=== PATIENT | female | born 1930 | race Caucasian/White ===

== ENCOUNTER → 2016-12-13 | Day surgery (SDC) | payer MEDICARE, BC ==
[2016-12-07 15:40] VITALS: BMI 31.1
[~2016-12-13] MED LIST: CLINDAMYCIN 900 MG in DEXTROSE 5% IN WATER 50 ML IVPB ONE; DEXAMETHASONE SOD PHOSPHATE 10 MG/ML 1 ML VIAL IV ONE; HYDROcodone/APAP 5-325MG 1 EACH TAB PO ONE; HYDROmorphone 0.5 MG/0.5 ML SYRINGE IVP PRN; LACTATED RINGERS 1,000 ML IV SCH; LIDOCAINE 1% 20 ML VIAL (10MG/ML) FOR IV START INTRADERMA PRN; LIDOCAINE 1% INJ 10MG/ML (20 ML MDV) ONE; MIDAZOLAM 2 MG/2 ML VIAL IV PRN; MIDAZOLAM 2 MG/2 ML VIAL ONE; ONDANSETRON 4 MG/2 ML VIAL IVP ONE; PROPOFOL 10 MG/ML 20 ML VIAL IV ONE; SCOPOLAMINE 1.5MG/72HR PATCH TRANSDERM ONE; ePHEDrine SULFATE/0.9% NACL/PF 50 MG/5 ML SYRINGE IV ONE; fentaNYL (PF) 50 MCG/ML 2 ML AMP ONE
--- NOTE | 2016-12-13 14:57 | P.OP ---
Date of Procedure: 12/13/16 Preoperative Diagnosis: Mixed Urinary Incontinence, Intrinsic Sphincter Deficiency Postoperative Diagnosis: Same Procedure(s) Performed: Cystoscopy with Coaptite Injections Anesthesia: BANDAR Surgeon: Sylvester Nicolas Estimated Blood Loss (ml): 0 IV fluids (ml): 500 Pathology: none sent Condition: stable Disposition: PACU Indications for Procedure: She is an 86-year-old woman with significant mixed urinary incontinence, which required the use of 6 pads daily. On examination, the bladder was well supported. There was no urethral hypermobility. Urodynamic testing was consistent with intrinsic sphincter deficiency, and she thus underwent Coaptite injections. She developed postoperative urinary retention, but this resolved and her incontinence was 80% improved. The incontinence has now worsened despite the fact she continues to take Detrol LA, and she will thus undergo repeat Coaptite injections. Operative Findings: Very good coaptation achieved. Description of Procedure: The patient was taken to the operating room and placed in the dorsolithotomy position, with her legs supported in Alcon stirrups. The external genitalia was prepped and draped sterilely. The 30 lens was used to introduce the 19- Albanian start cystoscopic sheath through the urethra and into the bladder under direct vision. The urethra was unremarkable. The bladder was examined in its entirety. The right ureteral orifices was of normal anatomic location and configuration, and clear urine effluxed from it. The left ureteral orifice was not seen with certainty. No tumors or foreign bodies were seen. The long transurethral needle was passed through a 20-Albanian sheath specially designed for injection. The cystoscope was advanced to the level of the mid urethra. The needle was then advanced such that a perforated the mucosa, and it was then advanced within the submucosal plane to the level of the proximal urethra. Coaptite was injected in 4 sites. A total of 4 syringes were injected. Very good coaptation of the proximal urethra was achieved. The bladder was drained, and the procedure was terminated. The patient tolerated the procedure well was taken to the recovery room in stable condition.
[2016-12-13 15:03] VITALS: TEMP 97
[2016-12-13 16:19] VITALS: RESP 18
[2016-12-13 17:20] VITALS: BP 148/80; PULSE 82
== END | disposition home or self-care (01) ==
LOC: OR 12:07
PROVIDERS: ATTEND Urology
DX: N39.46 Mixed incontinence (principal); N36.42 Intrinsic sphincter deficiency (ISD); D50.9 Iron deficiency anemia, unspecified; I20.9 Angina pectoris, unspecified; M10.9 Gout, unspecified; I83.90 Asymptomatic varicose veins of unspecified lower extremity; E55.9 Vitamin D deficiency, unspecified; E79.0 Hyperuricemia without signs of inflammatory arthritis and tophaceous disease; E66.9 Obesity, unspecified; Z68.31 Body mass index [BMI] 31.0-31.9, adult; I12.9 Hypertensive chronic kidney disease with stage 1 through stage 4 chronic kidney disease, or unspecified chronic kidney disease; K21.9 Gastro-esophageal reflux disease without esophagitis; N18.4 Chronic kidney disease, stage 4 (severe); H40.9 Unspecified glaucoma; M19.90 Unspecified osteoarthritis, unspecified site; J44.9 Chronic obstructive pulmonary disease, unspecified; Z79.82 Long term (current) use of aspirin; Z79.899 Other long term (current) drug therapy; Z88.1 Allergy status to other antibiotic agents; Z88.0 Allergy status to penicillin; Z88.2 Allergy status to sulfonamides; Z88.8 Allergy status to other drugs, medicaments and biological substances
CPT/HCPCS: 52327; L8606; J2250; J1100; J2405; J2001; J3010; J2704

== ENCOUNTER → 2017-05-14 | Outpatient (CLI) | payer MEDICARE, BC ==
[2017-05-14 11:27] LABS: Basophils # (A) 0.1 k/uL (0-0.2); Basophils % (A) 1 %; Eosinophils # (A) 0.5 k/uL (0-0.7); Eosinophils % (A) 9 %; HCT 31.1 % (34.0-46.0); HGB 10.6 gm/dL (11.4-16.0); Lymphocytes # (A) 1.5 k/uL (1.0-4.8); Lymphocytes % (A) 26 %; MCH 31.5 pg (25.0-35.0); MCHC 34.1 g/dL (31.0-37.0); MCV 92.5 fL (80.0-100.0); Mean Platelet Volume 6.9; Monocytes # (A) 0.5 k/uL (0-1.0); Monocytes % (A) 8 %; Neutrophils % (A) 52 %; Platelet Count 264 k/uL (150-450); RBC 3.36 m/uL (3.80-5.40); RDW 13.5 % (11.5-15.5); WBC 5.8 k/uL (3.8-10.6)
[2017-05-14 11:44] LABS: Appearance,Urine Clear (Clear); Bilirubin,Urine Negative (Negative); Blood,Urine Negative (Negative); Color,Urine Colorless; Glucose,Urine (UA) Negative (Negative); Ketones,Urine Negative (Negative); Leukocyte Esterase,Urine Negative (Negative); Nitrite,Urine Negative (Negative); PH, Urine 5.5 (5.0-8.0); Protein,Urine Trace (Negative); Specific Gravity,Urine 1.005 (1.001-1.035); Urobilinogen,Urine <2.0 mg/dL (<2.0)
[2017-05-14 11:53] LABS: Calcium 9.5 mg/dL (8.4-10.2); Magnesium 2.2 mg/dL (1.6-2.3); Phosphorus 5.2 mg/dL (2.5-4.5); Potassium 4.3 mmol/L (3.5-5.1); Uric Acid 6.1 mg/dL (3.7-7.4)
[2017-05-14 17:24] LABS: Parathyroid Hormone Intact 114.7 pg/mL (14.0-72.0)
[2017-05-14 17:33] LABS: Iron Saturation 25.22 (12.00-45.00)
[2017-05-14 17:41] LABS: Vitamin D 25 Hydroxy 55.6 ng/mL (30.0-100.0)
== END | disposition home or self-care (01) ==
LOC: LABWHC1 10:45
PROVIDERS: ATTEND Internal Medicine Nephrology
DX: N39.0 Urinary tract infection, site not specified (principal); D50.9 Iron deficiency anemia, unspecified; E55.9 Vitamin D deficiency, unspecified; N25.81 Secondary hyperparathyroidism of renal origin; M10.9 Gout, unspecified; D63.8 Anemia in other chronic diseases classified elsewhere; N18.4 Chronic kidney disease, stage 4 (severe)
CPT/HCPCS: 36415; 80048; 81003; 82306; 82728; 83540; 83550; 83735; 83970; 84100; 84550; 85025

== ENCOUNTER → 2017-05-21 | Outpatient (CLI) | payer MEDICARE, BC ==
[2017-05-18 13:03] VITALS: BMI 31.4
[2017-05-21 12:23] VITALS: BP 159/91; PULSE 75; RESP 18
--- NOTE | 2017-05-21 12:49 | P.CONS ---
History of Present Illness - Reason for Consult Consult date: 05/21/17 - History of Present Illness This is 86 years FEMALE with a chronic history of severe neck pain and headache , started more than 2 years ago, she denies any initiating event, she denies any motor or sensory deficit, she reported the headache is constant and increases with any neck movement, she tried pain medication [place] 5/325 without any benefit, she was evaluated by Dr. Mcclelland, neurology services and she recommended bilateral occipital nerve block, patient was referred to [facility] for occipital nerve block, patient denies any fever or night sweats she denies any change in the bowel movement or urination Past Medical History Past Medical History: CVA/TIA, Dementia, Eye Disorder, GERD/Reflux, Hypertension , Memory Impairment, Pneumonia, Respiratory Disorder Additional Past Medical History / Comment(s): Heart skips a beat sometimes. BILAT GLAUCOMA, USES WHEELCHAIR History of Any Multi-Drug Resistant Organisms: None Reported Past Surgical History: Back Surgery, Cholecystectomy, Hysterectomy, Joint Replacement, Orthopedic Surgery Additional Past Surgical History / Comment(s): BILAT cataracts, RT TKA, RT KNEE SX Past Anesthesia/Blood Transfusion Reactions: No Reported Reaction Additional Past Anesthesia/Blood Transfusion Reaction / Comm: "slow to wake up after anesthesia" Past Psychological History: No Psychological Hx Reported Smoking Status: Never smoker Past Alcohol Use History: None Reported Past Drug Use History: None Reported - Past Family History Brother(s) Family Medical History: Cancer Mother Family Medical History: No Reported History Medications and Allergies Home Medications Medication Instructions Recorded Confirmed Type Aspirin 81 mg PO DAILY 07/31/13 05/18/17 History Hydrochlorothiazide [Hydrodiuril] 50 mg PO DAILY 07/31/13 05/18/17 History Isosorbide Mononitrate [Imdur] 30 mg PO BID 07/31/13 05/18/17 History Lisinopril [Zestril] 20 mg PO BID 07/31/13 05/18/17 History Metoprolol Tartrate [Lopressor] 100 mg PO DAILY 07/31/13 05/18/17 History Potassium Chloride [Klor-Con 20] 20 meq PO BID 07/31/13 05/18/17 History Ranitidine HCl [Zantac] 150 mg PO HS 07/31/13 05/18/17 History Tolterodine Tartrate [Detrol LA] 4 mg PO DAILY 07/31/13 05/18/17 History cycloSPORINE 0.05% OPHTH SOLN 1 drop RIGHT EYE BID 07/31/13 05/18/17 History [Restasis] Albuterol Nebulized [Ventolin 1 applic INHALATION BID 10/15/15 05/18/17 History Nebulized] Atorvastatin [Lipitor] 10 mg PO DAILY 10/15/15 05/18/17 History Brimonidine Tartrate/Timolol 1 drop LEFT EYE HS 10/15/15 05/18/17 History [Combigan 0.2%-0.5% Eye Drops] Hydrocodone/Acetaminophen [[place] 1 - 2 each PO Q4HR PRN #10 tab 12/13/16 Rx 5-325] Allergies Allergy/AdvReac Type Severity Reaction Status Date / Time Cephalosporins Allergy Rash/Hives Verified 05/18/17 12:56 hydroxyzine Allergy Unknown Verified 05/18/17 12:56 nickel [Nickel] Allergy Swelling Verified 05/18/17 12:56 pregabalin [From Lyrica] Allergy "couldn't Verified 05/18/17 12:56 move" spironolactone Allergy Anaphylaxis Verified 05/18/17 12:59 vancomycin Allergy Rash/Hives Verified 05/18/17 12:56 Sulfa (Sulfonamide AdvReac Unknown Verified 05/18/17 12:56 Antibiotics) Physical Exam Vitals: Vital Signs Pulse Resp BP Pulse Ox 05/21/17 12:14 75 18 159/91 98 Physical Examinations : 1-Constitutiona : Cooperative , not in acute distress . 2-HEENT : nech ; supple , no Lymphadenopathy , normal thyroid size . eyes : no ptosis , no icterus, no photophobia . ENT : normal of hearing , normal oropharynx , no Thrush . 3- Respiratory : Chest clear to auscultations Bilaterally , no wheezing , no Rhonchi . 4- Cardiovascular : regular rate and rhythem , S1 , S2 , no S3 , no S4. 5- Gastrointestinal : abdomen soft no tenderness , bowel sounds positive all four quadrents , no organomegally . 6- Genitourinary : Defferred . 7- neurologic : Cranial nerve II to XII intact , no focal neurological deffecit . 8-psychatric : alert , oriented X 3 , appropriate affect , intact judgment and insight . 9-Lymphatic : no Lymphadenopathy . 10- musculoskeltal : cervical spine = motor stregnth in the deltoid and biceps, motor stregnth biceps and the wrist extensors (C6) . motor stregnth in the triceps muscle . deep tendon reflexes normal at the biceps , normal at Brachioradialis , normal at the Triceps positive cervical facet loading test . Severe tenderness over the occipital nerve bilaterally , Lumber spine = normal moter stegnth lower extremities ,thigh and legs .3/5 Results Comments: Computed tomography scan of the brain showed no intracranial pathology Assessment and Plan Plan: Assessment and plan= 1- bilateral occipital neuralgia. 2-cervical spondylosis. 3-cervicogenic headache. Patient could benefit from bilateral occipital nerve block, procedure risk and benefits and alternative discussed with the patient, and her and they agreed with the preceding , if she continued to have pain after the occipital nerve block, then we should order MRI of the cervical spine , and possibly have to do medial branch block and radiofrequency ablation. Time with Patient: Greater than 30
== END | disposition home or self-care (01) ==
LOC: PNWHC3 11:56
PROVIDERS: ATTEND Specialist
DX: M47.812 Spondylosis without myelopathy or radiculopathy, cervical region (principal); M54.81 Occipital neuralgia; K21.9 Gastro-esophageal reflux disease without esophagitis; I10 Essential (primary) hypertension; Z79.82 Long term (current) use of aspirin; Z79.899 Other long term (current) drug therapy; Z88.1 Allergy status to other antibiotic agents; Z88.8 Allergy status to other drugs, medicaments and biological substances; Z88.2 Allergy status to sulfonamides; Z98.890 Other specified postprocedural states
CPT/HCPCS: 99211

== ENCOUNTER 2017-05-22 06:20 | Day surgery (SDC) | payer MEDICARE, BC ==
[2017-05-22 07:26] VITALS: PULSE 75; RESP 16; TEMP 98.6
--- NOTE | 2017-05-22 07:51 | P.PCN ---
Date of Procedure: 05/22/17 Surgeon: Nadya Jackson Description of Procedure: Pre-operative diagnosis: 1- Bilateral occipital neuralgea Post Operative Diagnosis 1- Bilateral occipital neuralgea Procedure: 1- Bilateral occipital nerve block ANESTHESIA: None EBL: Minimal PROCEDURE INDICATION: The patient with neck pain and headache secondary to occipital neuralgea unresponsive to conservative treatments. The patient was referred to our clinic by Dr. Mcclelland for a trial of occipital nerve block bilaterally. PROCEDURE DESCRIPTION / TECHNIQUE: The patient was seen and identified in the preoperative area. Risks, benefits, complications, and alternatives were discussed with the patient, the patient agreed to proceed with the procedure and signed the consent. IV was started. Vital signs remained stable throughout the procedure. Patient was taken to the OR and time out was completed. The patient was placed in the prone position on the procedure table. A pillow was placed under the patients chest to increase the cervical interlaminar space. The cervical area and right occiptial area were prepped with chloraprep. Critical pause was taken. Vital signs were closely monitored during the procedure. Conscious sedation was used during the procedure to decrease patients anxiety. The the occipital exuberance and superior nuchal line were identified on the right side of the occiput. The greater occipital nerve location was estimated to be medial to the occipital artery and one third of the distance between the occipital exuberance and the right mastoid and the lesser occipital nerve was about two thirds of the distance between the occipital exuberance and the right mastoid on the superior nuchal line. I used 25-gauge 1-1/2 inch needle to go through the skin at these 2 points and infiltrate 2.5 MLS of a solution made up of 6 MLS Marcaine 0.5% +10 mg of Sexamethasone. The solution was infiltrated down to the periosteum.The same procedure was repeated on the left side. Patient tolerated procedure well.
[2017-05-22 08:06] VITALS: BP 166/77
== END 2017-05-22 08:16 | disposition home or self-care (01) ==
LOC: ORPAIN 06:20
PROVIDERS: ATTEND Anesthesiology
DX: M54.81 Occipital neuralgia (principal); F03.90 Unspecified dementia, unspecified severity, without behavioral disturbance, psychotic disturbance, mood disturbance, and anxiety; K21.9 Gastro-esophageal reflux disease without esophagitis; I10 Essential (primary) hypertension; H40.9 Unspecified glaucoma; Z86.73 Personal history of transient ischemic attack (TIA), and cerebral infarction without residual deficits; Z88.1 Allergy status to other antibiotic agents; Z88.8 Allergy status to other drugs, medicaments and biological substances; Z91.048 Other nonmedicinal substance allergy status
CPT/HCPCS: 64405; J1100

== ENCOUNTER 2017-06-06 08:32 | Day surgery (SDC) | payer MEDICARE, BC ==
[2017-05-31 16:07] VITALS: BMI 32.0
[2017-06-06] MEDS ORDERED: LACTATED RINGERS 1,000 ML IV SCH (09:15)
[2017-06-06] MEDS ORDERED: LIDOCAINE 1% 20 ML VIAL (10MG/ML) FOR IV START INTRADERMA ONE (09:28)
[2017-06-06 09:29] VITALS: RESP 16; TEMP 97.8
[2017-06-06] MEDS ORDERED: IV FLUID CONTINUATION 1,000 ML IV ONE ×2 (10:56)
--- NOTE | 2017-06-06 11:03 | P.PCN ---
Date of Procedure: 06/06/17 Surgeon: Faheem Carrillo Pathology: none sent Condition: stable Disposition: PACU Description of Procedure: PREOPERATIVE DIAGNOSIS: 1-occipital neuralgia POSTOPERATIVE DIAGNOSIS:. 1-occipital neuralgia PROCEDURE: Bilateral occipital nerve block ANESTHESIA: Local EBL: Minimal PROCEDURE INDICATION: The patient with neck pain and headache secondary to bilateral occipital neuralgia and has failed conservative management. Only two days' relief from last procedure. No use of blood thinners. PROCEDURE DESCRIPTION / TECHNIQUE: The patient was seen and identified in the preoperative area. Risks, benefits, complications, and alternatives were discussed with the patient (including but not limited to incomplete pain relief , bleeding, infection, nerve damage, and allergies to medications), the patient agreed to proceed with the procedure and signed the consent after all questions were answered. Patient was taken to the OR and time out was completed to verify proper patient , position, laterality of pain, and allergies. Pt was placed in the sitting position. IV was started. Vital signs remained stable throughout the procedure. Conscious sedation was used during the procedure to decrease patients anxiety. The cervical area and bilateral occipital areas were prepped in the usual sterile fashion. The right occipital ridge was palpated and was then accessed with a 25 G needle. Then after negative aspiration, 3 ml of the total 6 ml block solution containing 4 ml of PF Bupivacaine 0.5% and Kenalog 80 mg was injected. Needle was withdrawn intact. The entire procedure was then repeated on the left side exactly as above. Needle was withdrawn intact and there were no acute complications. DISPOSITION / PLANS: The patient was placed in a supine position and transferred to the recovery area in a stable condition for observation and was discharged from the recovery room after meeting discharge criteria. Home discharge instructions given to the patient by the staff. The patient was reexamined prior to discharge. The patient will schedule a follow up in clinic in 4-6 weeks to evaluate efficacy.
[2017-06-06 11:11] VITALS: PULSE 77
[2017-06-06 12:04] VITALS: BP 186/82
== END 2017-06-06 11:55 | disposition home or self-care (01) ==
LOC: ORPAIN 08:32
PROVIDERS: ATTEND Anesthesiology
DX: G89.29 Other chronic pain (principal); M54.81 Occipital neuralgia; M47.812 Spondylosis without myelopathy or radiculopathy, cervical region; Z88.1 Allergy status to other antibiotic agents; Z91.048 Other nonmedicinal substance allergy status
CPT/HCPCS: 64405; J3301; J2001

== ENCOUNTER → 2017-07-18 | Outpatient (CLI) | payer MEDICARE, BC ==
[2017-07-18 12:39] VITALS: BP 148/70; PULSE 75; RESP 16
--- NOTE | 2017-07-18 13:02 | P.PN ---
Progress Note - Text Progress Note Date: 07/18/17 Patient returns for followup for chronic neck and head pain. Patient recently underwent bilateral occipital nerve block x 2, which provided some relief for only 1-2 days' interval. Patient continues on no regular opioid medications for pain. Patient denies adverse drug effects from medications. Today, pt denies new-onset weakness, bowel/bladder incontinence, or any other signs or symptoms of cauda equina syndrome. There are no signs of acute intoxication, and no indications of medication diversion or overuse. In addition to above, 13-point review of systems is also negative for chest pain , shortness of breath, changes in vision, changes in hearing, new onset weakness , abdominal pain, diarrhea, extreme fatigue, malaise, fever, skin changes, homicidal or suicidal ideation, or bowel or bladder incontinence. Vital Signs: Reviewed in EMR Gen: WDWN, AAOx3, NAD HEENT: NCAT, EOMI, hearing grossly normal Pulm: resp unlabored Abd: soft, NT, ND Neck: supple, trachea midline ROM in flexion cervical spine: reduced ROM in extension cervical spine: reduced Cervical paravertebral tenderness: + Cervical Facet tenderness: + R > L Spurling's: neg Imaging: Reviewed in EMR Assessment: 1. cervical spondylosis 2. cervicogenic DALY 3. chronic pain syndrome Plan: 1. Explanation: Opioid and psychological risk scores were reviewed. Diagnoses , prognoses, and multiple treatment options including but not limited to physical therapy, interventional therapies, adjuvant medical therapies, narcotic medication therapies, and surgery were discussed with the patient and all questions were answered to the patient's satisfaction. 2. Opioid agreement: no opioids prescribed today 3. Counseling: The patient was counseled extensively on BODY MASS INDEX, EXERCISE. Specifically, the patient was instructed regarding the importance of weight control, and exercise in the context of both chronic pain and overall health. 4. Procedures: none for now, awaiting MRI 5. Consultations: None 6. Investigations: UDS not done today, MAPS queried and appropriate; MRI C- spine 7. Medications: none prescribed 8. Morphine equivalents per day prescribed: zero 9. Disposition: f/u for re-eval in 4 weeks with MRI C-spine PQRS measures: 1-Patient's medications are documented in the chart. 2-Tobacco use is negative 3-Patient has had a pneumococcal vaccine. 4-Advanced care planning discussed, patient unable to give. 5-Opioid contract NOT signed with the patient. 6-Pain positive, follow-up visit or procedure scheduled 7-Patient's blood pressure measured and documented, and patient will follow up with the primary care due to hypertension. 8-Patient's weight was measured, and body mass index ABOVE the normal limits, and counseling was done. Patient instructed to follow up with PCP. 9-Patient WAS NOT identified as an unhealthy alcohol user.
== END | disposition home or self-care (01) ==
LOC: PNWHC3 12:19
PROVIDERS: ATTEND Anesthesiology
DX: G89.4 Chronic pain syndrome (principal); M54.2 Cervicalgia; M47.812 Spondylosis without myelopathy or radiculopathy, cervical region; R51 Headache
CPT/HCPCS: 99211

== ENCOUNTER → 2017-08-09 | Outpatient (CLI) | payer MEDICARE, BC ==
--- NOTE | 2017-08-09 21:02 | MR ---
EXAMINATION TYPE: MR cervical spine wo con DATE OF EXAM: 08/09/2017 COMPARISON: NONE HISTORY: Tension-type headache / Spondylosis TECHNIQUE: Multiplanar, multisequence images of the cervical spine were acquired. FINDINGS: C2-C3: Minimal disc bulge is present with anterior thecal sac contact. No AP spinal canal stenosis pr esent. Uncovertebral joint hypertrophy is present with moderate foraminal narrowing. C3-C4: Broad-based disc bulge has moderate anterior thecal sac compression. This has cord contact and some mild cord flattening. There is mildly spinal canal stenosis. Moderate bilateral foraminal narro wing from uncovertebral joint hypertrophy is present. C4-C5: Broad-based disc bulge has moderate anterior thecal sac compression. This has cord contact. Co rd deformity is not identified. Uncovertebral joint atrophy is present with moderate bilateral forami nal narrowing. C5-C6: Disc bulge has mild anterior thecal sac contact. Cord contact is present. No spinal canal sten osis present. Cord deformity is not present. There is moderate left and severe right foraminal narrow ing secondary to uncovertebral joint hypertrophy. C6-C7: Broad-based disc bulge is present with moderate anterior thecal sac compression. This is sligh tly greater to the right paracentral region. Cord contact is present. Some mild cord flattening may b e present. Moderate bilateral foraminal narrowing isn't. C7-T1: Right paracentral disc herniation is present with moderate anterior thecal sac compression. No AP spinal canal stenosis is present. This may have contact with the exiting nerve root on the right. Left foramen is patent. There is exaggeration of cervical lordosis. Cord signal appears preserved throughout its visualized c ourse. There is some increased signal within the C3 vertebral body. IMPRESSION: Multilevel disc bulges and degenerative disc changes. This has moderate anterior thecal sac compressi on and cord contact C3-4, C4-5, C5-6 and C6-7. This is greater to the right at C6-7 some mild cord fl attening. Broad-based mild cord flattening is present C3-4.
== END | disposition home or self-care (01) ==
LOC: RADMRIMAIN 12:43
PROVIDERS: ATTEND Anesthesiology
DX: M50.21 Other cervical disc displacement, high cervical region (principal); M47.812 Spondylosis without myelopathy or radiculopathy, cervical region; G95.29 Other cord compression
CPT/HCPCS: 72141

== ENCOUNTER → 2017-08-21 | Outpatient (CLI) | payer MEDICARE, BC ==
[2017-08-21 12:04] VITALS: BP 152/71; PULSE 75; RESP 18
--- NOTE | 2017-08-21 12:29 | P.PN ---
Progress Note - Text Progress Note Date: 08/21/17 Patient returns for followup for chronic neck and head pain. Patient recently underwent bilateral occipital nerve block x 2, which provided some relief for only 1-2 days' interval. Patient continues on no regular opioid medications for pain; MRI C-spine completed, results below. Patient denies adverse drug effects from medications. Today, pt denies new-onset weakness, bowel/bladder incontinence, or any other signs or symptoms of cauda equina syndrome. There are no signs of acute intoxication, and no indications of medication diversion or overuse. In addition to above, 13-point review of systems is also negative for chest pain , shortness of breath, changes in vision, changes in hearing, new onset weakness , abdominal pain, diarrhea, extreme fatigue, malaise, fever, skin changes, homicidal or suicidal ideation, or bowel or bladder incontinence. Vital Signs: Reviewed in EMR Gen: WDWN, AAOx3, NAD HEENT: NCAT, EOMI, hearing grossly normal Pulm: resp unlabored Abd: soft, NT, ND Neck: supple, trachea midline ROM in flexion cervical spine: reduced ROM in extension cervical spine: reduced Cervical paravertebral tenderness: + Cervical Facet tenderness: + R > L Spurling's: neg Imaging: MRI cervical spine without contrast demonstrates a broad-based disc bulge at C3- C4, C4-C5, and C6-C7. There is right paracentral disc herniation at C7-T1 present with some moderate anterior thecal sac compression. There is also uncovertebral joint hypertrophy at essentially every level in the cervical spine with the exception of C6-C7 and C7-T1. Assessment: 1. cervical spondylosis 2. cervicogenic DALY 3. chronic pain syndrome Plan: 1. Explanation: Opioid and psychological risk scores were reviewed. Diagnoses , prognoses, and multiple treatment options including but not limited to physical therapy, interventional therapies, adjuvant medical therapies, narcotic medication therapies, and surgery were discussed with the patient and all questions were answered to the patient's satisfaction. 2. Opioid agreement: no opioids prescribed today 3. Counseling: The patient was counseled extensively on BODY MASS INDEX, EXERCISE. Specifically, the patient was instructed regarding the importance of weight control, and exercise in the context of both chronic pain and overall health. 4. Procedures: bilateral CMBB C2-C3, C3-C4 and third occipital nerve 5. Consultations: None 6. Investigations: UDS not done today, MAPS queried and appropriate 7. Medications: none prescribed 8. Morphine equivalents per day prescribed: zero 9. Disposition: f/u for procedure as scheduled PQRS measures: 1-Patient's medications are documented in the chart. 2-Tobacco use is negative 3-Patient has had a pneumococcal vaccine. 4-Advanced care planning discussed, patient unable to give. 5-Opioid contract NOT signed with the patient. 6-Pain positive, follow-up visit or procedure scheduled 7-Patient's blood pressure measured and documented, and patient will follow up with the primary care due to hypertension. 8-Patient's weight was measured, and body mass index ABOVE the normal limits, and counseling was done. Patient instructed to follow up with PCP. 9-Patient WAS NOT identified as an unhealthy alcohol user.
== END | disposition home or self-care (01) ==
LOC: PNWHC3 11:41
PROVIDERS: ATTEND Anesthesiology
DX: G89.4 Chronic pain syndrome (principal); M47.812 Spondylosis without myelopathy or radiculopathy, cervical region; R51 Headache
CPT/HCPCS: 99211

== ENCOUNTER 2017-09-10 08:22 | Day surgery (SDC) | payer MEDICARE, BC ==
[~2017-09-10 08:22] MED LIST changes: -CLINDAMYCIN 900 MG in DEXTROSE 5% IN WATER 50 ML IVPB ONE; -DEXAMETHASONE SOD PHOSPHATE 10 MG/ML 1 ML VIAL IV ONE; -HYDROcodone/APAP 5-325MG 1 EACH TAB PO ONE; -HYDROmorphone 0.5 MG/0.5 ML SYRINGE IVP PRN; -LIDOCAINE 1% 20 ML VIAL (10MG/ML) FOR IV START INTRADERMA PRN; -LIDOCAINE 1% INJ 10MG/ML (20 ML MDV) ONE; -MIDAZOLAM 2 MG/2 ML VIAL IV PRN; -MIDAZOLAM 2 MG/2 ML VIAL ONE; -ONDANSETRON 4 MG/2 ML VIAL IVP ONE; -PROPOFOL 10 MG/ML 20 ML VIAL IV ONE; -SCOPOLAMINE 1.5MG/72HR PATCH TRANSDERM ONE; -ePHEDrine SULFATE/0.9% NACL/PF 50 MG/5 ML SYRINGE IV ONE; -fentaNYL (PF) 50 MCG/ML 2 ML AMP ONE
[2017-09-10 08:56] VITALS: RESP 16; TEMP 98.2
[2017-09-10] MEDS ORDERED: LIDOCAINE 1% 20 ML VIAL (10MG/ML) FOR IV START INTRADERMA ONE (09:17)
--- NOTE | 2017-09-10 09:50 | P.PCN ---
Date of Procedure: 09/10/17 Anesthesia: other (Local anesthesia and IV moderate conscious sedation with 0.5 mg of Versed and 50 g of fentanyl) Surgeon: Nadya Jackson Pathology: none sent Condition: stable Disposition: PACU Description of Procedure: The patient was seen in the preop holding area. She is scheduled to have cervical bilateral medial branch block for levels C2, 3 and 4 and third occipital nerve for a diagnosis of cervicogenic headache. The patient is confused and she does not remember whether medicine she took this morning. She also has a rash on her back for couple of weeks as she states and she has been on December [id number] medicine that she took for this rash started. She has multiple drug ALLERGIES. The patient was taken into the procedure room and placed in the supine position. Lateral view fluoroscopy was used to identify the target points however due to severe spondylosis and osteopenia I was not able to identify the C4 level that well. I then decided to do levels C2, C3 And third occipital nerve bilaterally. I used 25-gauge 3-1/2 inch Quincke spinal needle for this procedure and under the lateral view of fluoroscopy the needle was guided into the center of the trapezoid shaped articular pillars of C2 and C3 and at the joint line between C2 and C3 at the center of this joint line and the superior and inferior part of it and tried in the middle of it to target the third occipital nerve. After contacting bone at the target points mentioned above I injected 0.5 mils of a mixture of 4 MLS of bupivacaine 0.5% +10 mg of Decadron. The right side and was done first and then the left side was done in the same manner as mentioned above. The patient tolerated procedure well. We will repeat this procedure one more time.
[2017-09-10] MEDS ORDERED: IV FLUID CONTINUATION 1,000 ML IV ONE (09:52)
--- NOTE | 2017-09-10 10:01 | FL ---
Fluoroscopy HISTORY: Pain 27 seconds fluoroscopy time supplied to the referring clinician. 1 intraoperative C-arm images docum ent the procedure. See dictated report from anesthesia.
[2017-09-10 10:24] VITALS: BP 162/79; PULSE 69
== END 2017-09-10 10:47 | disposition home or self-care (01) ==
LOC: ORPAIN 08:22
PROVIDERS: ATTEND Anesthesiology
DX: G89.4 Chronic pain syndrome (principal); M47.812 Spondylosis without myelopathy or radiculopathy, cervical region; M85.88 Other specified disorders of bone density and structure, other site; R21 Rash and other nonspecific skin eruption; F03.90 Unspecified dementia, unspecified severity, without behavioral disturbance, psychotic disturbance, mood disturbance, and anxiety; K21.9 Gastro-esophageal reflux disease without esophagitis; I10 Essential (primary) hypertension; H40.9 Unspecified glaucoma; Z88.9 Allergy status to unspecified drugs, medicaments and biological substances; Z86.73 Personal history of transient ischemic attack (TIA), and cerebral infarction without residual deficits
CPT/HCPCS: 64450; 64490; 64491; J2250; J1030; J3010; 99152

== ENCOUNTER 2017-09-26 08:28 | Day surgery (SDC) | payer MEDICARE, BC ==
[2017-09-21 09:15] VITALS: BMI 31.1
[2017-09-26 09:24] VITALS: RESP 16; TEMP 98.7
[2017-09-26] MEDS ORDERED: LACTATED RINGERS 1,000 ML IV ONE (09:45)
[2017-09-26] MEDS ORDERED: LIDOCAINE 1% 20 ML VIAL (10MG/ML) FOR IV START INTRADERMA ONE (09:47)
[2017-09-26] MEDS ORDERED: LACTATED RINGERS 1,000 ML IV SCH (11:00)
--- NOTE | 2017-09-26 11:08 | P.PCN ---
Date of Procedure: 09/26/17 Description of Procedure: Date of Procedure: 09/26/2017 Procedure: Bilateral cervical medial branch block C2-C3, C3-C4, and third occipital nerve Anesthesia: IV Versed mg Surgeon: Param Gage M.D. Condition: stable Disposition: PACU Description of Procedure: The patient was seen in the preop holding area. She is scheduled to have cervical bilateral medial branch block for levels C2, 3 and 4 and third occipital nerve for a diagnosis of cervicogenic headache. The patient was taken into the procedure room and placed in the supine position. Lateral view fluoroscopy was used to identify the target points. I then decided to do levels C2-C3, C3-C4 And third occipital nerve bilaterally. I used 25-gauge 3-1/2 inch Quincke spinal needle for this procedure and under the lateral view of fluoroscopy the needle was guided into the center of the trapezoid shaped articular pillars of C2 and C3 and at the joint line between C2 and C3 at the center of this joint line and the superior and inferior part of it and tried in the middle of it to target the third occipital nerve. After contacting bone at the target points mentioned above I injected 0.5 mils of a mixture of 4 MLS of bupivacaine 0.5% +10 mg of Decadron. The right side and was done first and then the left side was done in the same manner as mentioned above. The patient tolerated procedure well. Disposition: Patient was taken to postanesthesia recovery unit in stable condition, and assessed for immediate pain relief. Patient had relief of pain greater than 70%. We'll schedule for cervical radio frequency ablation in 2-4 weeks
--- NOTE | 2017-09-26 11:09 | P.GSHP ---
History of Present Illness H&P Date: 09/26/17 Patient presents for cervical medial branch blocks C2-C3, C3-C4, third occipital nerve #2 of 2. Patient had relief greater than 80% for 5-6 days with the previous medial branch block. We'll repeat today and reassess after and likely scheduled for cervical radio frequency ablation. Vital Signs: Reviewed in EMR Gen: WDWN, AAOx3, NAD Cardio: Regular rate and rhythm, no edema Pulm: resp unlabored Abd: soft, NT, ND Neck: supple, trachea midline ROM in flexion cervical spine: reduced ROM in extension cervical spine: reduced Cervical paravertebral tenderness: + Cervical Facet tenderness: + R > L Spurling's: Positive bilateral with radiation to the rhomboids Assessment: 1. cervical spondylosis 2. cervicogenic DALY 3. chronic pain syndrome Past Medical History Past Medical History: COPD, CVA/TIA, Dementia, Eye Disorder, GERD/Reflux, Hypertension, Memory Impairment, Pneumonia, Renal Disease, Respiratory Disorder Additional Past Medical History / Comment(s): Heart skips a beat sometimes. GLAUCOMA , GOUT, HX OF CVA (10-12 YRS AGO WITH NO RESIDUAL EFFECTS., RENAL DISEASE (SEES DR NICHOLAS), USES WHEEL CHAIR AND STATES SHE NEEDS ASSISTANCE TO WALK., STATES SOB., PAIN IN HER NECK AND RIGHT SHOULDER. History of Any Multi-Drug Resistant Organisms: None Reported Past Surgical History: Back Surgery, Cholecystectomy, Hysterectomy, Joint Replacement, Orthopedic Surgery Additional Past Surgical History / Comment(s): BILAT cataracts, RT TKA, RT KNEE SX Past Anesthesia/Blood Transfusion Reactions: No Reported Reaction Additional Past Anesthesia/Blood Transfusion Reaction / Comment(s): "slow to wake up after anesthesia" Smoking Status: Never smoker - Past Family History Brother(s) Family Medical History: Cancer Mother Family Medical History: No Reported History Medications and Allergies Home Medications Medication Instructions Recorded Confirmed Type Aspirin 81 mg PO DAILY 07/31/13 09/21/17 History Isosorbide Mononitrate [Imdur] 30 mg PO DAILY 07/31/13 09/21/17 History Potassium Chloride [Klor-Con 20] 20 meq PO DAILY 07/31/13 09/21/17 History Ranitidine HCl [Zantac] 150 mg PO BID 07/31/13 09/26/17 History cycloSPORINE 0.05% OPHTH SOLN 1 drop RIGHT EYE BID 07/31/13 09/26/17 History [Restasis] Albuterol Nebulized [Ventolin 1 applic INHALATION BID 10/15/15 09/26/17 History Nebulized] Atorvastatin [Lipitor] 10 mg PO HS 10/15/15 09/26/17 History Acetaminophen Tab [Tylenol Tab] 1,000 mg PO Q6HR PRN 05/31/17 09/26/17 History Allopurinol [Zyloprim] 100 mg PO DAILY 05/31/17 09/21/17 History Brimonidine Tartrate/Timolol 1 drop LEFT EYE DIRECTED 05/31/17 09/26/17 History [Combigan 0.2%-0.5% Eye Drops] Calcium Carbonate [Calcium] 600 mg PO DAILY 05/31/17 09/26/17 History Chlorthalidone [Hygroton] 12.5 mg PO DAILY 05/31/17 09/21/17 History Cyanocobalamin (Vitamin B-12) 1,000 mcg PO DAILY 05/31/17 09/26/17 History [Vitamin B-12] Ergocalciferol (Vitamin D2) 50,000 unit PO QMONTH 05/31/17 09/26/17 History [Vitamin D2] Ferrous Sulfate [Feosol] 325 mg PO DAILY 05/31/17 09/26/17 History Furosemide [Lasix] 40 mg PO DAILY@0800,1200 05/31/17 09/21/17 History Multivitamins, Thera [Multivitamin 1 tab PO DAILY 05/31/17 09/26/17 History (formulary)] Stool 1 tab PO HS 05/31/17 09/26/17 History Vit C/E/Zn/Coppr/Lutein/Zeaxan 1 each PO DAILY 05/31/17 09/26/17 History [Preservision Areds 2 Softgel] amLODIPine [Norvasc] 10 mg PO HS 05/31/17 09/26/17 History hydrALAZINE HCL [Apresoline] 100 mg PO TID 05/31/17 09/26/17 History Allergies Allergy/AdvReac Type Severity Reaction Status Date / Time Cephalosporins Allergy Rash/Hives Verified 08/21/17 11:54 hydroxyzine Allergy Unknown Verified 09/21/17 09:08 nickel [Nickel] Allergy Swelling Verified 09/21/17 09:08 pregabalin [From Lyrica] Allergy "couldn't Verified 09/21/17 09:08 move" spironolactone Allergy Anaphylaxis Verified 09/21/17 09:08 vancomycin Allergy Rash/Hives Verified 09/21/17 09:08 amoxicillin AdvReac Unknown Verified 09/21/17 09:08 clavulanic acid AdvReac Unknown Verified 09/21/17 09:08 [From Augmentin] codeine AdvReac Unknown Verified 09/21/17 09:08 diphenhydramine AdvReac Rash/Hives Verified 09/21/17 09:08 [From Benadryl] Sulfa (Sulfonamide AdvReac Unknown Verified 08/21/17 11:54 Antibiotics) Surgical - Exam Vital Signs Temp Pulse Resp BP Pulse Ox 98.7 F 72 16 191/77 96 09/26/17 09:22 09/26/17 09:22 09/26/17 09:22 09/26/17 09:22 09/26/17 09:22
--- NOTE | 2017-09-26 11:48 | FL ---
EXAMINATION TYPE: FL guided pain mgmt statistic DATE OF EXAM: 09/26/2017 HISTORY: Flouroscopy time 20 seconds of fluoroscopy provided. IMPRESSION: 1. Fluoroscopy time.
[2017-09-26] MEDS ORDERED: IV FLUID CONTINUATION 1,000 ML IV ONE (12:00)
[2017-09-26 12:07] VITALS: BP 173/79; PULSE 79
== END 2017-09-26 12:12 | disposition home or self-care (01) ==
LOC: ORPAIN 08:28
PROVIDERS: ATTEND Anesthesiology
DX: M47.812 Spondylosis without myelopathy or radiculopathy, cervical region (principal); G89.4 Chronic pain syndrome; R51 Headache; J44.9 Chronic obstructive pulmonary disease, unspecified; K21.9 Gastro-esophageal reflux disease without esophagitis; I10 Essential (primary) hypertension; M10.9 Gout, unspecified; Z86.73 Personal history of transient ischemic attack (TIA), and cerebral infarction without residual deficits; Z87.01 Personal history of pneumonia (recurrent); Z96.651 Presence of right artificial knee joint; Z79.82 Long term (current) use of aspirin; Z79.899 Other long term (current) drug therapy; Z99.3 Dependence on wheelchair; Z88.1 Allergy status to other antibiotic agents; Z88.2 Allergy status to sulfonamides; Z88.5 Allergy status to narcotic agent; Z88.0 Allergy status to penicillin; Z88.8 Allergy status to other drugs, medicaments and biological substances
CPT/HCPCS: 64450; 64490; 64491; J2250; J1100; J3010; 99152

== ENCOUNTER → 2017-11-06 | Outpatient (CLI) | payer MEDICARE, BC ==
[2017-11-06 14:37] VITALS: BP 157/70; PULSE 73; RESP 16; TEMP 97.5
--- NOTE | 2017-11-06 15:14 | P.PAINPG ---
Subjective Progress Note Date: 11/06/17 This is a 57 years old female with still of severe and chronic neck pain, and headache, diagnosed with cervical spondylosis occipital neuralgia and cervicogenic headache, we have done bilateral medial branch block cervical area C2-C3/C3 4 and bilateral suboccipital nerve block, x2 , patient had more than 70 % decrease in her neck pain and headache after each block , she reports intensity of the neck pain and headache 8-10 over 10, she denies any motor or sensory deficit, she denies any fever or night sweats . Objective - Vital Signs Vital signs: Vital Signs Temp 97.5 F L 11/06/17 14:33 Pulse 73 11/06/17 14:33 Resp 16 11/06/17 14:33 BP 157/70 11/06/17 14:33 Pulse Ox 95 11/06/17 14:33 Intake & Output 11/05/17 11/06/17 11/06/17 18:59 06:59 18:59 Weight 77.111 kg - Exam Physical Examinations : 1-Constitutiona : Cooperative , not in acute distress . 2-HEENT : nech ; supple , no Lymphadenopathy , normal thyroid size . eyes : no ptosis , no icterus , no photophobia . ENT : normal of hearing , normal oropharynx , no Thrush . 3- Respiratory : Chest clear to auscultations Bilaterally , no wheezing , no Rhonchi . 4- Cardiovascular : regular rate and rhythem , S1 , S2 , no S3 , no S4. 5- Gastrointestinal : abdomen soft no tenderness , bowel sounds , no organomegally . 6- Genitourinary : Defferred . 7- neurologic : Cranial nerve II to XII intact , no focal neurological deffecit . 8-psychatric : alert , oriented X 3 , appropriate affect , intact judgment and insight . 9-Lymphatic : no Lymphadenopathy . 10- musculoskeltal : Cervical Spine motor stregnth in the deltoid and biceps, normal right side , normal Left side motor stregnth biceps and the wrist extensors normal right side ,normal left side . motor stregnth in the triceps muscle . normal Right side , normal Left side deep tendon reflexes normal at the biceps , normal at Brachioradialis , normal at triceps. positive cervical facet loading test . Assessment and Plan Plan: Assessment and plan= chronic neck pain and headaches secondary to, cervicogenic headache, occipital neuralgia , cervical spondylosis with facet arthropathy . She had a good result after diagnostic medial branch block C2-3 ,C3-4 , 3 rd occipital nerve block She will be with candidate for radiofrequency ablation of the medial branch and the levels mentioned above with the left-sided first, then , the right side Time with Patient: Less than 30 PQRS Measure Charge Sheet Measure #130: Documentation of Current Meds in Medical Chart: Patient's medications documented in chart Measure #226: Tobacco Use: Screen & Cessation Intervention: Pt not a tobacco user Measure #111: Pneumonia Vaccination: Pneumococcal vaccine administered or previously received Measure #47: Advance Care Plan: Advance care planning discussed & documented, pt chose/unable to give Measure #412: Opioid Treatment Agreement: No documentation of signed opioid treatment agreement Measure #408: Opioid Therapy Follow-up Evaluation: Patient had NO f/u eval minimum every 3 months during opioid therapy Measure #317: Preventitive Care & Scrn High Bld Press & F/U: Pre-hypertensive or hypertensive BP documented, pt will f/u with PCP Measure #128: Body Mass Index (BMI) Screening & Follow-up: BMI documented ABOVE normal parameters - f/u documented Measure #131: Pain Assessment & Follow-up: Pain positive & plan documented, Follow-up scheduled Measure #431: Unhealthy Alcohol Use Preventative Care & Scrn: Patient not identified as an unhealthy alcohol user PQRS Narrative: Smoking Status Never smoker Do You Want the Pneumonia Vaccine Up to Date Vaccine AT THIS TIME? Blood Pressure 157/70 Pain Intensity [Head] 8 Scale Used Numeric (1 - 10) Hx Alcohol Use (MH) No Home Medications: Ambulatory Orders Aspirin 81 mg PO DAILY 07/31/13 Isosorbide Mononitrate [Imdur] 30 mg PO DAILY 07/31/13 Potassium Chloride [Klor-Con 20] 20 meq PO DAILY 07/31/13 Ranitidine HCl [Zantac] 150 mg PO BID 07/31/13 cycloSPORINE 0.05% OPHTH SOLN [Restasis] 1 drop RIGHT EYE BID 07/31/13 Albuterol Nebulized [Ventolin Nebulized] 1 applic INHALATION BID 10/15/15 Atorvastatin [Lipitor] 10 mg PO HS 10/15/15 Acetaminophen Tab [Tylenol Tab] 1,000 mg PO Q6HR PRN 05/31/17 Allopurinol [Zyloprim] 100 mg PO DAILY 05/31/17 Brimonidine Tartrate/Timolol [Combigan 0.2%-0.5% Eye Drops] 1 drop LEFT EYE DIRECTED 05/31/17 Calcium Carbonate [Calcium] 600 mg PO DAILY 05/31/17 Chlorthalidone [Hygroton] 12.5 mg PO DAILY 05/31/17 Cyanocobalamin (Vitamin B-12) [Vitamin B-12] 1,000 mcg PO DAILY 05/31/17 Ergocalciferol (Vitamin D2) [Vitamin D2] 50,000 unit PO QMONTH 05/31/17 Ferrous Sulfate [Feosol] 325 mg PO DAILY 05/31/17 Furosemide [Lasix] 40 mg PO DAILY@0800,1200 05/31/17 Multivitamins, Thera [Multivitamin (formulary)] 1 tab PO DAILY 05/31/17 Stool 1 tab PO HS 05/31/17 Vit C/E/Zn/Coppr/Lutein/Zeaxan [Preservision Areds 2 Softgel] 1 each PO DAILY amLODIPine [Norvasc] 10 mg PO HS 05/31/17 hydrALAZINE HCL [Apresoline] 100 mg PO TID 05/31/17 Controlled Substance Measures - Controlled Substance Measures Is patient prescribed a controlled substance at discharge?: No When asked, does pt state using other controlled substances?: No If prescribed controlled substance>3 days was MAPS reviewed?: No If Rx opioid, was Start Talking consent form obtained?: No If opioid is for acute pain is fill amount 7 days or less?: No Was information provided regarding opioid addiction?: No
== END | disposition home or self-care (01) ==
LOC: PNWHC3 13:20
PROVIDERS: ATTEND Specialist
DX: G89.29 Other chronic pain (principal); R51 Headache; M54.81 Occipital neuralgia; M47.812 Spondylosis without myelopathy or radiculopathy, cervical region; M46.92 Unspecified inflammatory spondylopathy, cervical region; Z79.899 Other long term (current) drug therapy; Z79.82 Long term (current) use of aspirin
CPT/HCPCS: 99211

== ENCOUNTER 2017-11-21 10:01 | Day surgery (SDC) | payer MEDICARE, BC ==
[2017-11-16 14:06] VITALS: BMI 35.6
[2017-11-21 10:32] VITALS: PULSE 75; TEMP 98.2
--- NOTE | 2017-11-21 11:30 | P.PCN ---
Date of Procedure: 11/21/17 Procedure(s) Performed: PREOPERATIVE DIAGNOSIS: Cervical spondylosis with Facet Arthropathy without myelopathy. Cervicogenic headache. Occipital neuralgia. POSTOPERATIVE DIAGNOSIS: Same as preoperative diagnosis. PROCEDURES: Radiofrequency thermocoagulation,left C2-3, C3-4, medial branch with Fluroscopy [place] Radiofrequency thermocoagulation of the left third occipital nerve under fluoroscopy guidance ANESTHESIA: Local with Ropivacaine 0.5 % , moderate sedation with fentanyl 50 micrograms and Versed.0.5 mg EBL: Minimal PROCEDURE INDICATION: The patient with neck pain secondary to cervical arthropathy who had more than 50% relief of her pain with previous diagnostic cervical medial branch block. PROCEDURE DESCRIPTION / TECHNIQUE: The patient was seen and identified in the preoperative area. Risks, benefits, complications, and alternatives were discussed with the patient, the patient agreed to proceed with the procedure and signed the consent. IV was started. Vital signs remained stable throughout the procedure. Patient was taken to the OR and time out was completed. The patient was placed in the prone position on the procedure table. A pillow was placed under the patient s chest to increase the cervical interlaminar space. The cervical area was prepped and draped in the usual sterile fashion. Critical pause was taken. Vital signs were closely monitored during the procedure. Conscious sedation was used during the procedure to decrease patients anxiety. Using cross-table lateral fluoroscopy, the centroid of the trapezoid of left C2 ,C3,were identified, marked, and localized with 1% lidocaine. Subsequently, a 20 [id number] radiofrequency cannula with a 10-mm active tip was advanced guided by fluoroscopy to the centroid of the trapezoid of left C2 ,C3. Needle tip position was confirmed at the centroid of the trapezoids of C2 ,C3,with anteroposterior fluoroscopy. Each site then underwent sensory testing at 50 Hz and 0 to 1 volt and motor testing at 2 Hz and 0 to 3 volt with local stimulation, but no radicular symptoms down the arm. Thereafter C2 ,C3, sites underwent radiofrequency thermocoagulation at 80 degrees celsius for 90 seconds after injecting 0.5 ml of PF Ropivacaine 0.5 %. After thermocoagulation , 1 ml of the block solution containing Kenalog 20 mg and 2 mL of preservative- free normal saline was injected at theLeft C2 , C3, levels after negative aspiration of CSF and blood and with no paresthesias, After that to do the radiofrequency of the left side third occipital nerve 20- gauge radiofrequency active tip needle placed at the junction between the C2 on C3 vertebra on the left side, we did the sensory testing which was positive on then we did the motor stimulation which was positive for localized contractions , the cervical area, then after that the radiofrequency done at 80C for 90 seconds, and the needle removed COMPLICATIONS: No acute complications. DISPOSITION / PLANS: The patient was placed in a supine position and transferred to the recovery area in a stable condition for observation and was discharged from the recovery room after meeting discharge criteria. Home discharge instructions given to the patient by the staff. The patient was reexamined prior to discharge. The patient will schedule a follow up in the clinic in 2-4 weeks.
[2017-11-21] MEDS ORDERED: IV FLUID CONTINUATION 1,000 ML IV ONE ×2 (11:38)
[2017-11-21 11:46] VITALS: BP 148/65; RESP 20
--- NOTE | 2017-11-21 15:46 | FL ---
Fluoroscopy HISTORY: Pain 29 seconds fluoroscopy time supplied to the referring clinician. 2 intraoperative C-arm images docum ent the procedure. See dictated report from anesthesia.
== END 2017-11-21 12:32 | disposition home or self-care (01) ==
LOC: ORPAIN 10:01
PROVIDERS: ATTEND Specialist
DX: M47.812 Spondylosis without myelopathy or radiculopathy, cervical region (principal); M54.81 Occipital neuralgia; F03.90 Unspecified dementia, unspecified severity, without behavioral disturbance, psychotic disturbance, mood disturbance, and anxiety; H40.9 Unspecified glaucoma
CPT/HCPCS: 64633; 64634; J2250; J3301; J3010; 99152; 99153

== ENCOUNTER 2017-12-10 08:46 | Day surgery (SDC) | payer MEDICARE, BC ==
[2017-12-04 10:55] VITALS: BMI 35.6
[2017-12-10 09:11] VITALS: TEMP 98.1
[2017-12-10] MEDS ORDERED: LIDOCAINE 1% 20 ML VIAL (10MG/ML) FOR IV START INTRADERMA ONE (09:28)
--- NOTE | 2017-12-10 10:29 | P.PCN ---
Date of Procedure: 12/10/17 Preoperative Diagnosis: Cervicogenic headache Postoperative Diagnosis: Same as above Procedure(s) Performed: Right cervical radiofrequency ablation of C2, C3 medial branches and the third occipital nerve Surgeon: Nadya Jackson Pathology: none sent Condition: stable Disposition: PACU Description of Procedure: The patient was seen in the preoperative holding area, the procedure was explained to the patient and her questions were answered. Then she was brought into the procedure room and placed in prone position. Skin was prepped with ChloraPrep and draped in a sterile manner. Lidocaine 1% was used to numb the skin up at the target points that were chosen as follows: For the C2 and C3 medial branches the target points were the center of the trapezoid shaped cervical articular pillars of C2 and C3 on the lateral view of fluoroscopy, and for the third occipital nerve the target point was at the middle of the C2-C3 joint line at the superior, meddle and inferior edges of this joint line. I used 100 mm in length 20-gauge with 10 mm curved active tip radiofrequency ablation needles for this procedure. Motor examination showed only local twitches of these needles with no radiation of twitching to the left upper extremity. After that I injected 0.5 MLS of MRopivacaine 0.5% with a total of 10 mg of Decadron. Radiofrequency ablation was then started for 90 seconds at 80C the needles were withdrawn intact. The patient tolerated procedure well. She was monitored in the PACU for 20 minutes and she was discharged home in stable condition.
[2017-12-10] MEDS ORDERED: IV FLUID CONTINUATION 1,000 ML IV ONE ×2 (10:34)
[2017-12-10 10:40] VITALS: RESP 20
[2017-12-10 11:03] VITALS: BP 149/68; PULSE 79
--- NOTE | 2017-12-10 13:27 | FL ---
Fluoroscopy HISTORY: Pain 38 seconds fluoroscopy time supplied to the referring clinician. 2 intraoperative C-arm images docum ent the procedure. See dictated report from anesthesia.
== END 2017-12-10 12:03 | disposition home or self-care (01) ==
LOC: ORPAIN 08:46
PROVIDERS: ATTEND Anesthesiology
DX: G44.89 Other headache syndrome (principal); M47.812 Spondylosis without myelopathy or radiculopathy, cervical region; F03.90 Unspecified dementia, unspecified severity, without behavioral disturbance, psychotic disturbance, mood disturbance, and anxiety; H40.9 Unspecified glaucoma; Z91.09 Other allergy status, other than to drugs and biological substances
CPT/HCPCS: 64633; 64634; J2250; J1100; J3010; 99152

== ENCOUNTER → 2017-12-27 | Outpatient (CLI) | payer MEDICARE, BC ==
[2017-12-27 14:44] VITALS: BP 130/59; PULSE 82; RESP 16
--- NOTE | 2017-12-27 15:04 | P.PN ---
Subjective Progress Note Date: 12/27/17 Principal diagnosis: Cervical spondylosis without myelopathy Right shoulder osteoarthritis This is an 87-year-old lady with history of neck pain and right shoulder pain with decreased range of motion of the right shoulder. The patient had cervical medial branch RFA for levels C2, C3 and third occipital nerve bilaterally. She still feels pain on the right side of her neck. Recently she had an EGD and biopsy on a stomach lesion and the biopsy results are still pending. By physical exam she is alert oriented 3 in no apparent distress She has mildly decreased and symmetrical muscle strength in the upper extremities. She has severe reduction in the right shoulder range of motion Positive tenderness around the right shoulder joint anteriorly and posteriorly Positive tenderness in the right trapezius muscle Objective - Vital Signs Vital signs: Vital Signs Temp Pulse 82 12/27/17 14:35 Resp 16 12/27/17 14:35 BP 130/59 12/27/17 14:35 Pulse Ox 93 L 12/27/17 14:35 Intake & Output 12/26/17 12/27/17 12/27/17 18:59 06:59 18:59 Weight 78.018 kg Assessment and Plan Plan: Cervical spondylosis without myelopathy Right shoulder joint osteoarthritis the patient was told that she is not a candidate for surgery because of her cardiac condition Myofascial pain I will schedule the patient to have right shoulder joint steroid injection I will start her on very small dose of [place] 5 mg she can take half a pill every 6 hours when necessary pain, I will give her only 20 pills and she will let us know if it does help her or not with the pain. I asked the family to let us know about the results of her stomach biopsy as soon as possible.
== END | disposition home or self-care (01) ==
LOC: PNWHC3 14:09
PROVIDERS: ATTEND Anesthesiology
DX: M47.812 Spondylosis without myelopathy or radiculopathy, cervical region (principal); M19.011 Primary osteoarthritis, right shoulder; M79.18 Myalgia, other site; Z98.890 Other specified postprocedural states
CPT/HCPCS: 99211

== ENCOUNTER 2018-05-01 07:51 | Day surgery (SDC) | payer MEDICARE, BC ==
[~2018-05-01 07:51] MED LIST changes: -LACTATED RINGERS 1,000 ML IV SCH; +SODIUM CHLORIDE 0.9% 500 ML 500 ML IV SCH
[2018-05-01 08:19] VITALS: TEMP 97.7
[2018-05-01] MEDS ORDERED: LACTATED RINGERS 1,000 ML IV ONE (08:23)
[2018-05-01] MEDS ORDERED: LIDOCAINE 1% 20 ML VIAL (10MG/ML) FOR IV START INTRADERMA ONE (08:24)
--- NOTE | 2018-05-01 09:32 | P.PCN ---
Date of Procedure: 05/01/18 Procedure(s) Performed: Procedure(s) Performed: Procedure= right glenohumeral joints steroid injection under fluoroscopy guidance Preoperative diagnosis= 1-right shoulder arthralgia, right shoulder osteoarthritis Postoperative diagnosis=1-same as they have diagnoses Complication = none Condition= stable Anesthesia= moderate sedation with intravenous Versed 2 mg . Indication for the procedure= patient complaining of right shoulder pain , diagnosed with right shoulder osteoarthritis for this reason she was good candidate for right glenohumeral joint steroid inections Description of the procedure= procedure risk and benefits discussed with the patient, including but not limited, risk of infection and bleeding, and ALLERGIC reaction to the medication and not complete pain relief and patient agreed with the preceding patient taken to the operating room, placed in supine position , standard monitors applied to the patient then after induction of anesthesia back prepped with chlorhexidine 3 times , Then under strict sterile technique, the right glenohumeral was identified under fluoroscopy guidance been local infiltration of the skin and subcu interstitial with lidocaine 1% then 25-gauge [place] Needle advanced slowly under fluoroscopy and placed in the right shoulder joint needle placement confirmed with AP and oblique and lateral view and after appropriate needle placement confirmed and after negative aspiration, or heme , then Ropivacaine 0.5% 4 mL, and 40 mg of depo-medrol mixed together and injected in the right sacroiliac joint after negative aspiration patient tolerated the procedure well without any complication. Patient tolerated the procedure well and she will follow up with the pain clinic in a few weeks
[2018-05-01] MEDS ORDERED: IV FLUID CONTINUATION 650 ML IV ONE (09:35)
[2018-05-01 09:41] VITALS: RESP 16
[2018-05-01 10:09] VITALS: BP 173/77; PULSE 68
--- NOTE | 2018-05-01 10:14 | FL ---
Fluoroscopy HISTORY: Pain 3 seconds fluoroscopy time supplied to the referring clinician. 1 intraoperative C-arm images docume nt the procedure. See dictated report from anesthesia.
== END 2018-05-01 10:27 | disposition home or self-care (01) ==
LOC: ORPAIN 07:51
PROVIDERS: ATTEND Specialist
DX: M25.511 Pain in right shoulder (principal); M19.011 Primary osteoarthritis, right shoulder; M50.30 Other cervical disc degeneration, unspecified cervical region; I25.10 Atherosclerotic heart disease of native coronary artery without angina pectoris; I10 Essential (primary) hypertension; J44.9 Chronic obstructive pulmonary disease, unspecified; Z88.1 Allergy status to other antibiotic agents; Z88.5 Allergy status to narcotic agent; Z88.8 Allergy status to other drugs, medicaments and biological substances; Z91.09 Other allergy status, other than to drugs and biological substances
CPT/HCPCS: 20610; 77002; J2250; J1030